=== PATIENT | male | born 1960 | race Caucasian/White ===

== ENCOUNTER 2023-02-01 05:23 | Day surgery (SDC) | payer BC ==
[2023-02-01] VITALS (15 sets, daily range): BP systolic 112–145; BP diastolic 59–87; PULSE 62–102; TEMP 97.9–98.8
[~2023-02-01] VITALS: Ht 177.8 cm; Wt 105.7 kg
[2023-02-01] MEDS ORDERED: NORCO 325 MG-7.1 TAB PO (06:50)
[2023-02-01] MEDS ORDERED: ZESTORETIC 12.51 TA1 PO (06:51)
[2023-02-01] MEDS ORDERED: MOBIC15 MG PO (06:51)
[2023-02-01] MEDS ORDERED: SINGULAIR 110 MG/TAB PO (06:52)
[2023-02-01] MEDS ORDERED: RT ADVAIR 228 DISKUS IH (06:52)
[2023-02-01] MEDS ORDERED: MULTI VITAMINS1 TAB PO (06:53)
[2023-02-01] MEDS ORDERED: VENTOLIN0.09 MG IH (06:53)
[2023-02-01] MEDS ORDERED: ZYRTEC 10MG10 MG PO (06:54)
--- NOTE | 2023-02-01 07:03 | NUR ---
PATIENT AMBULATED TO BAY 1 WITH STEADY GAIT. ALERT AND ORIENTED X4. PATIENT STATED UNDERSTANDING OF PROCEDURE. CONSENT SIGNED. ASSESSMENT COMPLETED. PEDAL PULSES MARKED. 20G IV STARTED IN RIGHT HAND. LR INFUSING WITHOUT DIFFICULTIES. NO FURTHER NEEDS NOTED. RESTING IN COT. CALL LIGHT IN REACH. AT BEDSIDE.
--- NOTE | 2023-02-01 11:24 | NUR ---
Pt recently arrived to the floor from [facility]. Pt is awake, alert and oriented. He rates his pain 5-6/10 but states this is tolerable for him. Oriented him and his family to the room and educated on room service. Right knee drsg is CDI with hemovac drain to compression. Right leg is elevated on a pillow which is below the knee. Educated to not put anything under the knee. SCDs on bilaterally and William hose to the left leg. Call light within reach
--- NOTE | 2023-02-01 14:40 | NUR ---
Pt doing well, pain tolerable at this time. Reports he feels better when he is up walking than sitting. PRN pain medication did help. Pt is currently sitting up in the chair, at bedside. Pt has ice to the right knee. No needs verbalized, will continue to monitor
--- NOTE | 2023-02-01 20:30 | NUR ---
PT A&O X4 SITTING IN RECLINER WITH AT BEDSIDE. VSS. DENYING ANY PAIN OR N/V. DRESSING & ACEWRAP TO RIGHT KNEE CDI. HEMOVAC TO COMPRESSION WITH BLOODY OUTPUT. INT TO RIGHT HAND PATENT. CALL LIGHT IN REACH & DENYING FURTHER NEEDS.
[2023-02-02 03:24] VITALS: BP 126/80; PULSE 93; TEMP 98
[2023-02-02 03:36] VITALS: BP_SYST 126
[2023-02-02 05:54] LABS: HEMATOCRIT 37.5 % (42.0-52.0); HEMOGLOBIN 12.7 g/dl (13.5-18.0)
[2023-02-02 05:59] LABS: CALCIUM 8.9 mg/dL (8.4-10.2); CREATININE, serum 0.92 mg/dL (0.72-1.25); POTASSIUM 3.9 mmol/L (3.5-4.5)
[2023-02-02 07:40] VITALS: BP 133/71; PULSE 79; TEMP 98.2
[2023-02-02 09:00] VITALS: BP_SYST 133
--- NOTE | 2023-02-02 09:23 | NUR ---
Initial visit; Patient and his Lucille thanked Rn Informatics for visiting him. Konstantin is a very personable talkative gentleman and says he is doing great. He has been in so much pain and is now relieved of it. Rn Informatics offered prayer and will keep him in her prayers. Konstantin believes he will be discharged soon.
--- NOTE | 2023-02-02 09:26 | NUR ---
PT UP TO RECLINER WITH THERAPY. PAIN CONTROLLED WITH PO MEDS. DRESSING TO RIGHT KNEE CDI. PT IS A/O X4. PLAN ON DISCHARGE AFTER PM THERAPY.
--- NOTE | 2023-02-02 10:08 | NUR ---
Service Support Representative met with Patient and at bedside to conduct Care Managment Assessment and discuss discharge planning. Patient lives in [place] with his and is established with PCP RAMON Coronado. Patient is covered by [facility] for insurance. PAtient requests discharge medications be sent to [facility]. Patient denies the use of DME prior to admision and states that OP rehab is scheduled, with first appointment this coming Wednesday through [facility]. Patient does not have formal DPOAHC and requests form. SW provided DPOAHC form. Discharge Plan: Home with OP PT.
[2023-02-02 11:10] VITALS: BP 129/67; PULSE 81; TEMP 97.3
[2023-02-02 13:02] VITALS: BP_SYST 129
[2023-02-02] MEDS ORDERED: PERCOCET 325 MG1 TA2 PO (13:56)
[2023-02-02] MEDS ORDERED: CEPHALEXIN500 M1 PO (13:56)
== END 2023-02-02 15:39 | disposition home or self-care (01) ==
LOC: SDCO 05:23 → EDBD 07:30 → SURG 11:00 → SDCO 02-02 15:39
PROVIDERS: Orthopaedic Surgery
DX: M17.11 Unilateral primary osteoarthritis, right knee (principal); I10 Essential (primary) hypertension; J45.909 Unspecified asthma, uncomplicated; Z79.899 Other long term (current) drug therapy
CPT/HCPCS: OP; A9284; C1713; C1776; J0665; J0690; J1100; J1170; J1580; J1885; J2250; J2270; J2704; J2795; J3010; J7120